=== PATIENT | male | born 1980 | race Caucasian/White ===

== ENCOUNTER 2016-07-06 08:09 | Emergency (ER) | payer MEDICAID ==
[~2016-07-06] VITALS: Ht 172.7 cm; Wt 90.0 kg
[~2016-07-06 08:09] MED LIST: NAPR220T95 PO
[2016-07-06 08:11] VITALS: BP 133/74; PULSE 85; RESP 14; TEMP 98.1; O2SAT 99
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
[2016-07-06 08:33] VITALS: BP 130/71; PULSE 70; RESP 16; O2SAT 98
[2016-07-06] MEDS ORDERED: LIDOCAINE HCL 1% 50 ML VIAL XX ONE (09:00)
[2016-07-06] MEDS ORDERED: AZITHROMYCIN PWD FOR SUSP 1 GM PACKET PO ONE (09:00)
[2016-07-06] MEDS ORDERED: cefTRIAXone 250 MG VIAL IM ONE (09:00)
--- NOTE | 2016-07-06 09:02 | PD ---
HPI Chief Complaint: Complaint Time Seen by Provider: 08:36 Travel History International Travel<30 days: No Contact w/Intl Traveler<30days: No Traveled to known affect area: No History of Present Illness HPI 35-year-old male presents with burning when he urinates and concern for possible STD. He states that he recently is and after having sex with his girl he started having the symptoms. He denies any lesion to his penis or penile discharge to me. He denies other concurrent complaints. 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 [facility] Past Medical History Cancer: No Cardiovascular Problems: No Diminished Hearing: No Endocrine: No Gastrointestinal Disorders: Yes (RECURRENT VOMITING) GERD: Yes Genitourinary: No Hiatal Hernia: No Immune Disorder: No Implanted Vascular Access Dvce: No Musculoskeletal: No Neurologic: Yes Psychiatric: No Reproductive: No Respiratory: Yes Sickle Cell Disease: No Ulcer: No Influenza Vaccination: No PNEUMOCCOCAL Vaccine (Year): 2 Past Surgical History Appendectomy: Yes Other Surgery: No Social History Alcohol Use: No (PT DENIES) Tobacco Use: No Substance Use: Yes (MARIJUANA) Allergies-Medications (Allergen,Severity, Reaction): Coded Allergies: No Known Allergies (Verified , 07/06/16) Reported Meds & Prescriptions Reported Meds & Active Scripts Active No Active Prescriptions or Reported Medications Review of Systems Except as stated in HPI: all other systems reviewed are Neg Physical Exam Narrative GENERAL: Well-nourished, well-developed patient. SKIN: Warm and dry. HEAD: Normocephalic and atraumatic. EYES: No injection or drainage. ENT: No nasal drainage noted. NECK: Supple, trachea midline. CARDIOVASCULAR: Regular rate and rhythm RESPIRATORY: No increased effort. No accessory muscle use. GASTROINTESTINAL: Abdomen soft, non-tender, nondistended. GENITOURINARY after permission with brine room laborer: unCircumcised. Testes descended bilaterally without evidence of rotation. No lesions or erythema. No urethral discharge. NEUROLOGICAL: Awake and alert. Motor and sensory grossly within normal limits. Normal speech. Data Data Last Documented VS Vital Signs Date Time Temp Pulse Resp B/P Pulse Ox O2 Delivery O2 Flow Rate FiO2 07/06/16 08:33 70 16 130/71 98 Room Air 07/06/16 08:11 98.1 Orders Urinalysis - C+S If Indicated (07/06/16 08:35) Gc And Chlamydia Pcr (07/06/16 08:36) Azithromycin Powd Pack (Zithromax Powd P (07/06/16 09:00) Ceftriaxone Inj (Rocephin Inj) (07/06/16 09:00) Lidocaine 1% Inj (50 Ml) (Xylocaine 1% I (07/06/16 09:00) Labs Laboratory Tests Test 07/06/16 09:08 Urine Color YELLOW Urine Turbidity CLEAR Urine pH 6.0 Urine Specific [place] 1.031 Urine Protein 30 mg/dL Urine Glucose (UA) NEG mg/dL Urine Ketones NEG mg/dL Urine Occult Blood NEG Urine Nitrite NEG Urine Bilirubin NEG Urine Urobilinogen LESS THAN 2.0 MG/DL Urine Leukocyte Esterase NEG Urine RBC 1 /hpf Urine WBC 2 /hpf Urine Mucus MANY /lpf Microscopic Urinalysis Comment CULT NOT INDICATED MDM Medical Decision Making Medical Screen Exam Complete: Yes Emergency Medical Condition: Yes Medical Record Reviewed: Yes (past history confirmed) Interpretation(s) ua without uti Differential Diagnosis STD, UTI, cyst Narrative Course Patient presents with dysuria with possible STD will send urinalysis and gonorrhea and chlamydia and treat. Patient without fever, abdominal pain or testicular pain further workup can be as an outpatient. He agrees to plan of course Diagnosis Primary Impression: Dysuria Additional Instructions: follow with a primary in one week, return as needed Med/Other Pt SpecificInfo: No Change to Meds Scripts No Active Prescriptions or Reported Meds Disposition: 01 DISCHARGE HOME Condition: Stable Deirdre Barrow MD Jul 06, 2016 09:01
[2016-07-06 09:35] LABS: BLOOD, URINE NEG (NEG); COMMENT (UR) CULT NOT INDICATED; CULTURE IF INDICATED CULT NOT INDICATED; GLUCOSE,URINE NEG (NEG); KETONE, URINE NEG (NEG); MUCUS URINE MANY /lpf (OCC); NITRITE,URINE NEG (NEG); URINE COLOR YELLOW (YELLW/STRAW)
[2016-07-06 09:40] VITALS: BP 111/63; PULSE 66; RESP 18; O2SAT 97
[2016-07-06 12:24] LABS: CHLAMYDIA PCR NOT DETECTED (NOT DETECT); NEISSERIA PCR NOT DETECTED (NOT DETECT)
== END 2016-07-06 09:50 | disposition home or self-care (01) ==
LOC: NEPE 08:09
DX: R30.0 Dysuria (principal); N48.9 Disorder of penis, unspecified; K21.9 Gastro-esophageal reflux disease without esophagitis
CPT/HCPCS: 81001; 87491; 87591; 96372; 99283; J0696

== ENCOUNTER 2017-05-13 23:13 | Emergency (ER) | payer MEDICAID, OTHER ==
[~2017-05-13] VITALS: Ht 175.3 cm; Wt 90.9 kg
[2017-05-13 23:15] VITALS: BP 113/72; PULSE 87; RESP 18; TEMP 98.1; O2SAT 97
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
[2017-05-14] MEDS ORDERED: CYCL10TA PO (01:44)
[2017-05-14] MEDS ORDERED: IBUP1TAB7 PO (01:44)
[2017-05-14] MEDS ORDERED: PERC5TAB12 PO (01:44)
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
[2017-05-14 01:55] VITALS: BP 120/63; PULSE 73; RESP 18; O2SAT 98
[2017-05-14] MEDS ORDERED: IBUPROFEN 800 MG TAB PO ONE (02:00)
[2017-05-14] MEDS ORDERED: oxyCODONE/ACETAMINOPHEN 7.5 MG/325 MG TAB PO ONE (02:00)
[2017-05-14] MEDS ORDERED: CYCLOBENZAPRINE HCL 10 MG TAB PO ONE (02:00)
== END 2017-05-14 01:57 | disposition home or self-care (01) ==
LOC: PHED 23:13
DX: S29.012A Strain of muscle and tendon of back wall of thorax, initial encounter (principal); S39.012A Strain of muscle, fascia and tendon of lower back, initial encounter; V49.40XA Driver injured in collision with unspecified motor vehicles in traffic accident, initial encounter
CPT/HCPCS: 72128; 72131; 99283

== ENCOUNTER 2017-06-01 20:54 | Emergency (ER) | payer SELFPAY ==
[~2017-06-01 20:54] MED LIST changes: +CYCL10TA PO; +IBUP1TAB7 PO; -NAPR220T95 PO; +PERC5TAB12 PO
[2017-06-01 21:15] VITALS: BP 120/69; PULSE 74; RESP 18; TEMP 99; O2SAT 100
[2017-06-01] MEDS ORDERED: KETOROLAC TROMETHAMINE 30 MG/ML (IVP) VIAL IV PUSH ONE (23:15)
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
[2017-06-01 23:31] LABS: AUTOMATED NEUTROPHIL # 5.3 TH/MM3 (1.8-7.7); BASOPHIL # 0.1 TH/MM3 (0-0.2); BASOPHIL % 0.6 % (0.0-2.0); EOSINOPHIL # 0.2 TH/MM3 (0-0.4); HEMATOCRIT 39.2 % (39.0-51.0); HEMOGLOBIN 13.5 GM/DL (13.0-17.0); LYMPHOCYTE # 2.9 TH/MM3 (1.0-4.8); MEAN CELL VOLUME 91.1 FL (80.0-100.0); MEAN CORPUSCULAR HEMOGLOBIN 31.4 PG (27.0-34.0); MEAN CORPUSCULAR HGB CONC 34.5 % (32.0-36.0); MEAN PLATELET VOLUME 8.2 FL (7.0-11.0); MONO % 9.4 % (0.0-8.0); MONOCYTE # 0.9 TH/MM3 (0-0.9); PLATELET COUNT 265 TH/MM3 (150-450); RED CELL DISTRIBUTION WIDTH 13.5 % (11.6-17.2); WHITE BLOOD COUNT 9.2 TH/MM3 (4.0-11.0)
--- NOTE | 2017-06-01 23:52 | RADRPT ---
EXAM DATE/TIME: 06/01/2017 23:33 [facility] COMPARISON: No previous studies available for comparison. INDICATIONS : Rib pain, anterior and posterior pain on right side on chest. MEDICAL HISTORY : None. SURGICAL HISTORY : None. ENCOUNTER: Initial ACUITY: 1 week PAIN SCORE: 6/10 LOCATION: Right ribs FINDINGS: Multiple views of the right ribs were performed. There is no evidence of displaced fracture. No krystle tructive lesions or areas of periosteal thickening are seen. Expiratory view of the chest is negativ e for pneumothorax. The mediastinal structures are midline. CONCLUSION: 1. Unremarkable rib series. No displaced rib fractures or pneumothorax. Raymond Brown MD on June 01, 2017 at 23:50 Board Certified Radiologist. This report was verified electronically.
[2017-06-02 00:02] LABS: ALBUMIN 3.9 GM/DL (3.4-5.0); ALT (GPT) 27 U/L (12-78); AST (GOT) 28 U/L (15-37); BICARBONATE 24.9 MEQ/L (21.0-32.0); BLOOD UREA NITROGEN 15 MG/DL (7-18); CALCIUM 8.5 MG/DL (8.5-10.1); CHLORIDE 108 MEQ/L (98-107); CREATININE 1.08 MG/DL (0.60-1.30); GLOMERULAR FILTRATION RATE 78 ML/MIN (>89); GLUCOSE,RANDOM 77 MG/DL (74-106); SODIUM (NA) 140 MEQ/L (136-145)
[2017-06-02 00:04] LABS: ALKALINE PHOSPHATASE 96 U/L (45-117); TOTAL BILIRUBIN ADULT 0.2 MG/DL (0.2-1.0); TOTAL PROTEIN 8.2 GM/DL (6.4-8.2)
[2017-06-02 02:03] LABS: BILIRUBIN, URINE NEG (NEG); BLOOD, URINE NEG (NEG); GLUCOSE,URINE NEG (NEG); KETONE, URINE TRACE mg/dL (NEG); MUCUS URINE MOD /lpf (OCC); NITRITE,URINE NEG (NEG); PH, URINE 5.5 (5.0-8.5); URINE COLOR YELLOW (YELLW/STRAW); URINE LEUKOCYTE ESTERASE NEG (NEG)
[2017-06-02 02:04] LABS: AMORPHOUS SEDIMENT, URINE FEW
[2017-06-02] MEDS ORDERED: IOHEXOL 350 MG/ML 10 ML VIAL (for RAD DIAG) IVCONTRAST ONE (02:48)
--- NOTE | 2017-06-02 03:05 | RADRPT ---
EXAM DATE/TIME: 06/02/2017 02:35 [facility] COMPARISON: No previous studies available for comparison. INDICATIONS : Right upper quadrant pain. IV CONTRAST: 100 cc Omnipaque 350 (iohexol) IV ORAL CONTRAST: No oral contrast ingested. RADIATION DOSE: 16.16 CTDIvol (mGy) MEDICAL HISTORY : Gastroesophageal reflux disease. SURGICAL HISTORY : Appendectomy. ENCOUNTER: Initial ACUITY: 2 weeks PAIN SCALE: 8/10 LOCATION: Right upper quadrant TECHNIQUE: Volumetric scanning of the abdomen and pelvis was performed. Using automated exposure control and ad justment of the mA and/or kV according to patient size, radiation dose was kept as low as reasonably achievable to obtain optimal diagnostic quality images. DICOM format image data is available electro nically for review and comparison. FINDINGS: LOWER LUNGS: The visualized lower lungs are clear. LIVER: Homogeneous density without lesion. There is no dilation of the biliary tree. No calcified gallston es. SPLEEN: Normal size without lesion. PANCREAS: Within normal limits. KIDNEYS: Normal in size and shape. There is no mass, stone or hydronephrosis. ADRENAL GLANDS: Within normal limits. VASCULAR: There is no aortic aneurysm. BOWEL/MESENTERY: The stomach, small bowel, and colon demonstrate no acute abnormality. There is no free intraperitone al air or fluid. ABDOMINAL WALL: Within normal limits. RETROPERITONEUM: There is no lymphadenopathy. BLADDER: No wall thickening or mass. REPRODUCTIVE: Within normal limits. INGUINAL: There is no lymphadenopathy or hernia. MUSCULOSKELETAL: Within normal limits for patient age. CONCLUSION: 1. No acute CT abnormality in the abdomen or pelvis. Raymond Brown MD on June 02, 2017 at 3:02 Board Certified Radiologist. This report was verified electronically.
[2017-06-02] MEDS ORDERED: ROBA750T PO (03:30)
== END 2017-06-02 03:45 | disposition home or self-care (01) ==
LOC: NEPC 20:54
DX: R10.11 Right upper quadrant pain (principal); F12.90 Cannabis use, unspecified, uncomplicated
CPT/HCPCS: 71101; 74177; 80053; 81001; 83690; 85025; 85379; 96374; 99285; J1885; Q9967